=== PATIENT | female | born 2000 | race Hispanic/Latino ===

== ENCOUNTER 2022-02-01 20:00 | Inpatient (IN) | payer MEDICAID ==
[~2022-02-01 20:00] MED LIST: Bupivacaine 0.25% HCL 30 ML VIAL ONE
[2022-02-01 21:34] LABS: Fetal Membranes Rupture RUPTURE DETECTED (No Rupture)
[2022-02-01] MEDS ORDERED: Misoprostol 200 MCG TAB PR PRN (21:47)
[2022-02-01] MEDS ORDERED: Ondansetron PF 4 MG/2 ML Vial IVP PRN (21:47)
[2022-02-01] MEDS ORDERED: hydrALAZINE 20 MG/ML VIAL SLOW IVP PRN (21:47)
[2022-02-01] MEDS ORDERED: Acetaminophen 500 MG TAB PO PRN (21:47)
[2022-02-01] MEDS ORDERED: Promethazine HCl 25 MG/ML VIAL IM PRN (21:47)
[2022-02-01] MEDS ORDERED: Lidocaine 1% (PF) 30 ML VIAL SC PRN (21:47)
[2022-02-01] MEDS ORDERED: Ibuprofen 800 MG TAB PO PRN (21:47)
[2022-02-01] MEDS ORDERED: NS w/ Oxytocin 30 units 500 ML IV SCH ×2 (22:00)
[2022-02-01] MEDS: Lactated Ringer's 1,000 ML IV SCH (22:22)
[2022-02-01 22:43] LABS: Hemoglobin 12.8 g/dL (12.0-15.5); Mean Corpuscular HGB CONC 33.6 g/dL (32.0-36.0); Mean Corpuscular Hemoglobin 32.5 pg (27.0-33.0); Mean Corpuscular Volume 96.7 fl (81.6-98.3); Mean Platelet Volume 10.1 fl (7.4-10.4); Platelet Count 149 10x3/uL (150-450); RBC Distribution Width 18.9 % (11.5-14.5); Red Blood Cell (RBC) Count 3.94 10x6/uL (3.90-5.03); White Blood Cell (WBC) Count 8.7 10x3/uL (3.5-10.5)
[2022-02-01 23:13] LABS: HBSAg Index 0.22 S/CO (0-0.99); Hep B Surf Ag Non-Reactive S/CO (NonReactive); Syphilis Antibody Nonreactive (Nonreactive); Syphilis Antibody Index 0.02 S/CO (<1.00 Non-Reactive)
[2022-02-01 23:31] LABS: SARS-CoV-2 NAA Rapid Test Not Detected (NotDetected)
[2022-02-02] MEDS: Lactated Ringer's 1,000 ML IV SCH (06:17)
[2022-02-02] MEDS ORDERED: Fentanyl 2 mcg/Bup 0.1% Cadd 100 ML ONE ×2 (06:55→16:36)
[2022-02-02] MEDS ORDERED: Ondansetron PF 4 MG/2 ML Vial IVP PRN ×2 (07:35→14:00)
[2022-02-02] MEDS ORDERED: Promethazine HCl 25 MG/ML VIAL IM PRN (07:35)
[2022-02-02] MEDS ORDERED: ePHEDrine Sulfate 50 MG/10 ML VIAL SLOW IVP PRN (07:35)
[2022-02-02] MEDS ORDERED: Acetaminophen 325 MG TAB PO PRN (07:35)
[2022-02-02] MEDS ORDERED: Naloxone HCl 0.4 mg/ml Vial IVP PRN ×2 (07:35)
[2022-02-02] MEDS ORDERED: Moisturizing Cream (Eucerin) 113 GM JAR TOP PRN (07:35)
[2022-02-02] MEDS ORDERED: Lactated Ringer's 500 ML IV PRN (07:35)
[2022-02-02] MEDS ORDERED: diphenhydrAMINE 50 MG/ML VIAL IVP PRN (07:35)
[2022-02-02] MEDS ORDERED: Fentanyl 2 mcg/Bupivacaine 0.1% Cassette 100 ML EPIDURAL SCH (07:45)
[2022-02-02] MEDS ORDERED: Communication Order-Pharmacy FS SCH (07:45)
[2022-02-02] MEDS ORDERED: Misoprostol 200 MCG TAB ONE (09:26)
[2022-02-02] MEDS ORDERED: Methylergonovine 0.2 MG/ML VIAL ONE (09:26)
[2022-02-02 09:59] LABS: Hemoglobin 12.1 g/dL (12.0-15.5); Platelet Count 154 10x3/uL (150-450)
[2022-02-02 10:07] LABS: INR-International Normal Ratio 0.9; PTT 33.9 sec (22.0-33.0); Prothrombin Time 10.3 sec (9.5-12.1)
[2022-02-02] MEDS: Tranexamic Acid 1,000 MG/10 ML VIAL ONE ×2 (10:09→11:31)
[2022-02-02] MEDS ORDERED: Tranexamic Acid 1,000 MG/10 ML VIAL ONE (11:34)
[2022-02-02] MEDS: Methylergonovine 0.2 MG TAB PO SCH ×3 (13:12→21:37)
[2022-02-02 13:31] LABS: Hemoglobin 10.6 g/dL (12.0-15.5); Mean Corpuscular HGB CONC 33.1 g/dL (32.0-36.0); Mean Corpuscular Hemoglobin 32.8 pg (27.0-33.0); Mean Corpuscular Volume 99.1 fl (81.6-98.3); Mean Platelet Volume 10.3 fl (7.4-10.4); Platelet Count 140 10x3/uL (150-450); RBC Distribution Width 18.6 % (11.5-14.5); Red Blood Cell (RBC) Count 3.23 10x6/uL (3.90-5.03); White Blood Cell (WBC) Count 12.5 10x3/uL (3.5-10.5)
[2022-02-02] MEDS ORDERED: Lanolin Ointment 7 GM TUBE TOP PRN (14:00)
[2022-02-02] MEDS ORDERED: diphenhydrAMINE 25 MG CAP PO PRN (14:00)
[2022-02-02] MEDS ORDERED: hydrALAZINE 20 MG/ML VIAL SLOW IVP PRN (14:00)
[2022-02-02] MEDS ORDERED: NS w/ Oxytocin 30 units 500 ML IV SCH (14:00)
[2022-02-02] MEDS ORDERED: Bisacodyl 10 MG SUPP PR PRN (14:00)
[2022-02-02] MEDS ORDERED: Benzocaine-Menthol 82.5 ML CAN TOP PRN (14:00)
[2022-02-02] MEDS ORDERED: HYDROcodone/Acetaminophen 5/325 mg Tablet PO PRN ×2 (14:00)
[2022-02-02] MEDS ORDERED: Milk Of Magnesia 30 ML UDCUP PO PRN (14:00)
[2022-02-02] MEDS ORDERED: Preparation H Ointment 28 GM TUBE PR PRN (14:00)
[2022-02-02] MEDS ORDERED: Tranexamic Acid 1,000 MG in Sodium Chloride 0.9% 250 ML 250 ML IVPB SCH (14:00)
[2022-02-02] MEDS: Tranexamic Acid 650 MG TAB PO SCH (16:08)
[2022-02-02 18:25] LABS: #Monocytes 1.3 10x3/uL (0.0-1.1); %Basophils 0.2 % (0.0-2.0); %Eosinophils 0.2 % (0.0-6.0); %Lymphocytes 16.5 % (18.0-47.0); %Monocytes 11.1 % (0.0-10.0); %Neutrophils 71.4 % (40.0-75.0); Hemoglobin 10.2 g/dL (12.0-15.5); Mean Corpuscular HGB CONC 32.5 g/dL (32.0-36.0); Mean Corpuscular Hemoglobin 32.4 pg (27.0-33.0); Mean Corpuscular Volume 99.7 fl (81.6-98.3); Mean Platelet Volume 10.1 fl (7.4-10.4); Platelet Count 138 10x3/uL (150-450); RBC Distribution Width 18.9 % (11.5-14.5); Red Blood Cell (RBC) Count 3.15 10x6/uL (3.90-5.03); White Blood Cell (WBC) Count 11.3 10x3/uL (3.5-10.5)
[2022-02-02] MEDS: Ibuprofen 800 MG TAB PO SCH ×2 (23:25→23:27)
[2022-02-02] MEDS: Ferrous Sulfate 325 MG TAB PO SCH (23:26)
[2022-02-03] MEDS: Tranexamic Acid 650 MG TAB PO SCH (00:17)
[2022-02-03] MEDS: Docusate 100 MG CAP PO SCH ×3 (01:04→21:41)
[2022-02-03] MEDS: Methylergonovine 0.2 MG TAB PO SCH (01:06)
[2022-02-03 05:51] LABS: Hemoglobin 9.6 g/dL (12.0-15.5)
[2022-02-03] MEDS: Ibuprofen 800 MG TAB PO SCH ×3 (06:26→21:44)
[2022-02-03] MEDS: Prenatal Vitamin 1 TAB PO SCH (08:15)
[2022-02-03] MEDS: Ferrous Sulfate 325 MG TAB PO SCH ×2 (08:15→17:31)
[2022-02-03] MEDS ORDERED: Boostrix 0.5 ML (Tdap) VIAL (>/=7 yrs of age) IM ONE (14:00)
[2022-02-04] MEDS: Ibuprofen 800 MG TAB PO SCH (05:11)
[2022-02-04] MEDS: Lactated Ringer's 1,000 ML IV SCH (07:54)
[2022-02-04] MEDS: Ferrous Sulfate 325 MG TAB PO SCH (08:14)
[2022-02-04] MEDS: Prenatal Vitamin 1 TAB PO SCH (08:14)
[2022-02-04] MEDS: Docusate 100 MG CAP PO SCH (08:14)
[2022-02-04 08:17] VITALS: BP 94/48; TEMP 98.1
== END 2022-02-04 13:20 | disposition home or self-care (01) | DRG 768 ==
LOC: CJX 20:00 → CSHLD 23:41 → CSHPED 02-03 00:01
PROVIDERS: ADMIT Obstetrics & Gynecology; ATTEND Obstetrics & Gynecology
PROC: 10E0XZZ Delivery of Products of Conception, External Approach (ICD-10-PCS; principal; 2022-02-02)
PROC: 0W3R7ZZ Control Bleeding in Genitourinary Tract, Via Natural or Artificial Opening (ICD-10-PCS; 2022-02-02)
PROC: 0KQM0ZZ Repair Perineum Muscle, Open Approach (ICD-10-PCS; 2022-02-02)
PROC: 0UC97ZZ Extirpation of Matter from Uterus, Via Natural or Artificial Opening (ICD-10-PCS; 2022-02-02)
DX: O42.02 Full-term premature rupture of membranes, onset of labor within 24 hours of rupture (principal); Z37.0 Single live birth; O72.1 Other immediate postpartum hemorrhage; Z20.822 Contact with and (suspected) exposure to COVID-19; Z3A.40 40 weeks gestation of pregnancy; O70.1 Second degree perineal laceration during delivery; O71.89 Other specified obstetric trauma; D50.0 Iron deficiency anemia secondary to blood loss (chronic); O90.81 Anemia of the puerperium
CPT/HCPCS: 36415; 51702; 74178; 84112; 85014; 85018; 85027; 85049; 85384; 85610; 85730; 86780; 86850; 86900; 86901; 87340; 99285; J0595; J2210; J2405; J2550; J2590; J7120; U0002